=== PATIENT | female | born 1980 | race Caucasian/White ===

== ENCOUNTER 2023-05-05 14:07 | Day surgery (SDC) | payer BC ==
[~2023-05-05] VITALS: Ht 182.9 cm; Wt 136.4 kg
[2023-05-05 15:06] VITALS: BP 122/66
--- NOTE | 2023-05-05 15:07 | NUR ---
05/05/23 1507 Samia Armas IV DC'D BY [facility]BO. CANNULA INTACT. PT TOW.
== END 2023-05-05 15:20 | disposition home or self-care (01) ==
LOC: ORSCSDS 14:07
PROVIDERS: Surgery
PROC: 0DBL8ZX Excision of Transverse Colon, Via Natural or Artificial Opening Endoscopic, Diagnostic (ICD-10-PCS; principal; 2023-05-05 15:15)
DX: Z12.11 Encounter for screening for malignant neoplasm of colon (principal); Z80.0 Family history of malignant neoplasm of digestive organs; K63.5 Polyp of colon; G47.33 Obstructive sleep apnea (adult) (pediatric); F41.9 Anxiety disorder, unspecified; D12.3 Benign neoplasm of transverse colon; Z68.41 Body mass index [BMI] 40.0-44.9, adult
CPT/HCPCS: 88305; J0461; J2405; J2704; J7120; Q9968